=== PATIENT | female | born 1980 | race Two or more races ===

== ENCOUNTER 2024-12-28 11:15 | Inpatient (IN) | payer OTHER ==
[~2024-12-28] VITALS: Ht 152.4 cm; Wt 54.4 kg
[2024-12-28 13:35] VITALS: BP 124/85
[2024-12-28] MEDS ORDERED: ROSUVASTATIN CA20 MG PO (13:35)
[2024-12-28 13:43] LABS: COVID-19 AG NEGATIVE (NEGATIVE)
[2024-12-28 14:03] LABS: RH POSITIVE
[2024-12-30] MEDS ORDERED: POVIDONE-IODINE 118 ML BOTT TOP ONE (12:15)
[2024-12-30] MEDS ORDERED: METRONIDAZOLE/SODIUM CHLORIDE 500 MG/100 ML PIGGYBACK IV SCH (12:15)
[2024-12-30] MEDS ORDERED: SUGAMMADEX SODIUM 200 MG/2 ML VIAL IV ONE (12:15)
[2024-12-30] MEDS ORDERED: CEFAZOLIN SODIUM 1,000 MG VIAL IV SCH ×2 (12:15→17:00)
[2024-12-30] MEDS ORDERED: MORPHINE SULFATE 4 MG/ML CARTRIDGE IV PRN (12:30)
[2024-12-30] MEDS ORDERED: OxyCODONE HCL 5 MG TABLET (ROXICODONE) PO PRN (12:30)
[2024-12-30] MEDS ORDERED: RINGERS SOLUTION,LACTATED 1,000 ML IV SCH (12:30)
[2024-12-30] MEDS ORDERED: ONDANSETRON HCL 2 MG/ML VIAL IV PRN (12:30)
[2024-12-30] MEDS ORDERED: MORPHINE SULFATE 4 MG/ML VIAL IV ONE ×2 (13:15→14:00)
[2024-12-30 15:39] LABS: BASO % 0.2 % (0.1-1.2); EOS # 0.03 (0.04-0.54); EOS % 0.3 % (0.7-7.0); LYMPH # 1.07 (1.18-3.74); LYMPH % 10.1 % (19.3-53.1); MEAN PLATELET VOLUME 10.40 fl (9.4-12.4); MONO # 0.49 (0.24-0.82); MONO % 4.6 % (4.7-12.5); NEUT # 8.93 (1.56-6.13); NEUT % 84.5 % (34.0-71.1); RED CELL DISTRIBUTION WIDTH 11.8 % (11.6-14.4)
[2024-12-30 16:13] LABS: BUN CREA RATIO 14.0 (7.0-25.0); CREATININE SERUM 0.43 mg/dL (0.55-1.02); GFR 159.51; GLUCOSE FASTING 118.0 mg/dL (65-100); OSMOLALITY SERUM 280.0 MOSM/KG (275-295)
[2024-12-30] MEDS ORDERED: GABAPENTIN 300 MG CAPSULE PO SCH (17:00)
[2024-12-30 20:00] VITALS: BP 128/81
[2024-12-30] MEDS ORDERED: METOCLOPRAMIDE HCL 5 MG/ML VIAL IV SCH (21:00)
[2024-12-30] MEDS ORDERED: DOCUSATE SODIUM 100MG CAP PO SCH (21:00)
[2024-12-30] MEDS ORDERED: FAMOTIDINE/PF 20 MG/2 ML VIAL IV PUSH SCH (21:00)
[2024-12-31 01:08] VITALS: BP 109/68; O2SAT 98
[2024-12-31 06:45] LABS: BASO % 0.2 % (0.1-1.2); EOS # 0.07 (0.04-0.54); EOS % 0.8 % (0.7-7.0); LYMPH # 1.70 (1.18-3.74); LYMPH % 18.4 % (19.3-53.1); MEAN PLATELET VOLUME 10.60 fl (9.4-12.4); MONO # 0.68 (0.24-0.82); MONO % 7.4 % (4.7-12.5); NEUT # 6.75 (1.56-6.13); NEUT % 73.0 % (34.0-71.1); RED CELL DISTRIBUTION WIDTH 11.6 % (11.6-14.4)
[2024-12-31 07:20] LABS: BUN CREA RATIO 9.0 (7.0-25.0); CREATININE SERUM 0.46 mg/dL (0.55-1.02); GFR 147.57; GLUCOSE FASTING 97.0 mg/dL (65-100); OSMOLALITY SERUM 271.0 MOSM/KG (275-295)
[2024-12-31] MEDS ORDERED: ACETAMINOPHEN 500 MG GEL..CAP PO SCH (08:00)
[2024-12-31 08:29] VITALS: BP 116/72
[2024-12-31] MEDS ORDERED: ENOXAPARIN SODIUM 40 MG/0.4 ML SYRINGE SUBCUTANEO SCH (09:00)
[2024-12-31 16:00] VITALS: BP 104/68; O2SAT 99
[2024-12-31] MEDS ORDERED: METOCLOPRAMIDE HCL 10 MG TABLET PO PRN (20:00)
[2025-01-01 00:58] VITALS: BP 108/72
[2025-01-01 07:12] LABS: BASO % 0.6 % (0.1-1.2); EOS # 0.27 (0.04-0.54); EOS % 4.1 % (0.7-7.0); LYMPH # 2.12 (1.18-3.74); LYMPH % 31.9 % (19.3-53.1); MEAN PLATELET VOLUME 11.10 fl (9.4-12.4); MONO # 0.51 (0.24-0.82); MONO % 7.7 % (4.7-12.5); NEUT # 3.69 (1.56-6.13); NEUT % 55.5 % (34.0-71.1); RED CELL DISTRIBUTION WIDTH 11.9 % (11.6-14.4)
[2025-01-01 07:32] LABS: BUN CREA RATIO 12.0 (7.0-25.0); CREATININE SERUM 0.42 mg/dL (0.55-1.02); GFR 163.9; GLUCOSE FASTING 89.0 mg/dL (65-100); OSMOLALITY SERUM 278.0 MOSM/KG (275-295)
[2025-01-01 08:44] VITALS: BP 106/70
== END 2025-01-01 11:16 | disposition home or self-care (01) | DRG 743 ==
LOC: O/R 12-30 07:54 → OB/GYN 12-30 11:15
PROVIDERS: ADMIT Obstetrics & Gynecology Gynecologic Oncology; ATTEND Obstetrics & Gynecology Gynecologic Oncology
PROC: 0UT70ZZ Resection of Bilateral Fallopian Tubes, Open Approach (ICD-10-PCS; 2024-12-30)
PROC: 0USG0ZZ Reposition Vagina, Open Approach (ICD-10-PCS; 2024-12-30)
PROC: 0UT90ZZ Resection of Uterus, Open Approach (ICD-10-PCS; principal; 2024-12-30 16:30)
DX: D25.9 Leiomyoma of uterus, unspecified (principal)